=== PATIENT | female | born 1990 | race American Indian/Alaskan Native ===

== ENCOUNTER 2018-05-31 18:26 | Emergency (ER) | payer OTHER ==
[2018-05-31 18:43] VITALS: O2SAT 99
[2018-05-31] MEDS ORDERED: Albuterol 0.083% Inhal Sol (2.5 mg/3 mL) UD ONE (19:57)
[2018-05-31] MEDS ORDERED: Albuterol-Ipratrop 3 mg / 0.5 (3 ml) UD ONE (20:04)
--- NOTE | 2018-05-31 20:20 | C.PDOC ---
History Of Present Illness Patient c/o nasal and chest congestion, cough and wheezing from May 22 till now. Patient sts she didn't seek any medical evaluation until now. Patient sts she had subjective fever for the last few days. Patient sts her LMP was 05/22/18, but was shorter than usual. Time Seen by Provider: 05/31/18 19:16 Chief Complaint (Nursing): Cough, Cold, Congestion History Per: Patient History/Exam Limitations: no limitations Onset/Duration Of Symptoms: Other (from 05/22/18) Current Symptoms Are (Timing): Still Present Past Medical History Reviewed: Historical Data, Nursing Documentation, Vital Signs Vital Signs: Last Vital Signs Temp 99.3 F 05/31/18 18:41 Pulse 88 05/31/18 18:41 Resp 18 05/31/18 18:41 BP 120/69 05/31/18 18:41 Pulse Ox 99 05/31/18 18:41 - Medical History PMH: Asthma, Pneumonia ( x 2) Family History: States: Unknown Family Hx - Social History Hx Alcohol Use: No Hx Substance Use: No Review Of Systems Except As Marked, All Systems Reviewed And Found Negative. Physical Exam - Physical Exam Appears: Well, Non-toxic, No Acute Distress, Other (speaks in full sentenses) Skin: Normal Color, No Rash Head: Atraumatic, Normacephalic Eye(s): bilateral: Normal Inspection Ear(s): Bilateral: Normal Nose: Normal, No Discharge Oral Mucosa: Moist Tongue: Normal Appearing, No Lesions Lips: Normal Appearing, No Lesions Gingiva: Normal Appearing, No Ulceration, No Swelling Throat: Normal, No Erythema, No Exudate, No Drooling Neck: Normal ROM, Supple Lymphatic: No Adenopathy Chest: Symmetrical, No Deformity, No Tenderness Cardiovascular: Rhythm Regular, No Edema Respiratory: No Accessory Muscle Use, No Rhonchi, Wheezing (diffuse expiratory) Gastrointestinal/Abdominal: Soft, No Tenderness Extremity: Normal ROM, No Calf Tenderness, No Swelling Neurological/Psych: Oriented x3, Normal Speech, Normal Cognition ED Course And Treatment ECG Rhythm: Sinus Rhythm Interpretation Of ECG: sinus arrhythmia, occasional PVCs Rate From EC O2 Sat by Pulse Oximetry: 99 - Radiology CXR: Interpreted by Me CXR Interpretation: Yes: No Acute Disease Progress Note: Patient found to , but she insisted to get a CXR. She was explained about the risk of having xray while , she was double shielded for an xray. She was treated with Zithromax, Prednisone, Duoneb and Albuterol. On re-evaluation she feels better and is stable to be d/c home. Disposition - Disposition Disposition: HOME/ ROUTINE Disposition Time: 21:00 Condition: STABLE Additional Instructions: Follow up with your PMD within 1-2 days. Return to ED if feel worse. Prescriptions: Albuterol 0.083% [Albuterol Sulfate 3 Ml] 3 ml IH .Q4-6H #100 vial Nebulizer [Compact Compressor Nebulizer] 1 dev XX PRN PRN #1 dev PRN Reason: Wheezing Mask, Face [Nebulizer Aerosol Mask Adult] 1 dev XX PRN PRN #1 dev PRN Reason: Wheezing predniSONE [predniSONE Tab] 2 tab PO DAILY #8 tab Pnv No.95/Ferrous Fum/Folic AC [ Vitamins Tablet] 1 each PO DAILY #30 tablet Albuterol Sulfate [Proair Hfa] 1 puff IH Q6 PRN #1 inh PRN Reason: Cough Azithromycin [Zithromax] 250 mg PO DAILY #4 tab Instructions: Acute Bronchitis, - The First Month Forms: [employer] (Nepalese) - Clinical Impression Clinical Impression: Bronchitis, Positive test
[2018-05-31 21:03] VITALS: BP 149/89; PULSE 94; RESP 20; TEMP 97.9
--- NOTE | 2018-06-01 07:28 | RAD ---
Chest x-ray single frontal view HISTORY: Cough. Wheezing. COMPARISON: None available. Findings: Dense consolidative opacity in the right infrahilar region concerning for infiltrate and or pneumonia. Post treatment interval follow-up is recommended to exclude underlying lesion. Alternatively, correlation with chest CT may be helpful. Heart size within normal limits. Bibasilar breast and nipple shadows. Impression: Dense consolidative opacity in the right infrahilar region concerning for infiltrate and or pneumonia. Post treatment interval follow-up is recommended to exclude underlying lesion. Alternatively, correlation with chest CT may be helpful.
--- NOTE | 2018-06-02 23:09 | CARD ---
APPROVED REPORT Date of service: 05/31/2018 EKG Measurement Heart [id number] QT0T0 QTc0 <Conclusion> No QRS complexes found, no ECG analysis possible
== END 2018-05-31 21:20 | disposition home or self-care (01) ==
LOC: C.ER 18:26
DX: J40 Bronchitis, not specified as acute or chronic (principal); Z32.01 Encounter for pregnancy test, result positive